=== PATIENT | male | born 1990 | race Caucasian/White ===

== ENCOUNTER 2020-07-01 21:31 | Emergency (ER) | payer OTHER ==
[~2020-07-01] VITALS: Ht 175.3 cm; Wt 74.8 kg
[2020-07-01 22:09] VITALS: BP 123/84
[2020-07-01] MEDS ORDERED: NOVOLIN R100 UNIT/3 SUBQ (22:12)
== END 2020-07-01 22:30 | disposition home or self-care (01) ==
LOC: ER 21:31
DX: U07.1 COVID-19 (principal); R11.2 Nausea with vomiting, unspecified; E11.9 Type 2 diabetes mellitus without complications; Z79.4 Long term (current) use of insulin